=== PATIENT | female | born 1990 | race American Indian/Alaskan Native ===

== ENCOUNTER 2018-09-11 15:21 | Emergency (ER) | payer BC ==
[2018-09-11 17:36] LABS: SQUAMOUS EPITHIAL 34 /hpf (0-5); URINE BACTERIA OCC (<OCC); URINE BILIRUBIN NEGATIVE (NEGATIVE); URINE BLOOD 2+ (NEGATIVE); URINE CLARITY Hazy (Clear); URINE GLUCOSE (UA) NORMAL (Normal); URINE LEUKOCYTE ESTERASE 3+ Leu/uL (Negative); URINE PROTEIN 2+ mg/dL (NEGATIVE); URINE UROBILINOGEN NORMAL mg/dL (0.2-1.0)
[2018-09-11 17:37] LABS: URINE COLOR YELLOW (YELLOW)
--- NOTE | 2018-09-12 18:17 | US ---
Date of service: 09/11/2018 PROCEDURE: OB Pelvic Ultrasound HISTORY: 34 wks, GDM , abdominal pain Left central appears reported 01/26/2018 suggesting 32 week 4 day gestation. COMPARISON: None available. FINDINGS: UTERUS: Gestational sac: Single intrauterine gestation. Heart rate: 136 bpm. age (Ultrasound estimated): 32 weeks 4 days Sasha-gestational hemorrhage: None. Date of delivery (Ultrasound estimated) : 11/29/2018 The following mean biometry was obtained: Biparietal diameter 8.3 cm corresponds to 33 weeks 4 days. Head circumference 29.7 cm corresponds to 32 weeks 6 days. Abdominal circumference 30.0 cm correspond 32 weeks 0 days. Femur length 6.2 cm corresponds to 32 weeks 0 days. Estimated weight 1928 g +/-289.14 g/4 lb 4 oz. HC/AC ratio 1.06 falls within the normal range. [place] measuring 12.91 cm. anatomical survey compromised by late stage of gestation. Placenta is anterior with lie cephalic. No placental abruption or previa appreciated. Biophysical profile scoring: breathing 2/2. body movement 2/2. tone 2/2. Amniotic fluid 2/2. Total score: 8/8. CERVIX: Measures 3.9 cm. Long and closed. No cervical abnormality seen. RIGHT OVARY: Not identified. LEFT OVARY: Not identified. FREE FLUID: None. OTHER FINDINGS: None. IMPRESSION: Biophysical profile score 8/8. Single viable intrauterine gestation in cephalic lie with an anterior fundal placenta and average ultrasonic age 32 weeks 4 days as discussed above. No placental abruption or previa. cardiac activity 136 beats per minute. Additional details as listed above. Concordant preliminary report from Jeannette, 09/11/2018, 9:15 p.m..
[2018-09-13 16:38] VITALS: BP 122/61; PULSE 103; RESP 18; TEMP 98; O2SAT 100
--- NOTE | 2018-09-14 10:45 | OBHP ---
Datetime: 09/11/2018 16:18 IP Adm Impression: , intrauterine ; No Active Labor IP Admit Plan: Observation/Evaluation; Discharge home Admit Comment, IP Provider: 28yo with IUP at 32 weeks presents to the LND c/o lower abdominal d iscomfort since [employer]. She denies any vaginal bleeding or lrakage of fluid. She denies urinar y frequency, dysuria or burning. She had intercourse about 4 days ago and had some vaginal spotting b ut not now. Patient reports that she has GDM diet controlled and the last finger stick less than 1 hour ago is 160. PMHx: Nil of Note. SocialHx; None O: Afebrile Heart: RRR Chest: CTA B/L Abd: Soft, NT, BS- present Uterus soft, NT FHR - 140s, moderate variability TOCO: None SVE;0/0/-3 Assessment: IUP at 32 weeks Reaasuring Maternal status Plan: Discharge Home Follow up with Dr Lynch on Thursday. Pelvic rest Continue to Monitor glucose levels as per Dr Delong. Pelvic Type - PN: Adequate Extremities - PN: Normal Abdomen - PN: Normal Back - PN: Normal Breast - PN: Normal Lungs - PN: Normal Heart - PN: Normal Thyroid - PN: Normal Neurologic - PN: Normal HEENT - PN: Normal General - PN: Normal Presentation-Admit: Vertex FHR - Baseline A Provider: 140 Membranes, Provider: Intact Contraction Comments Provider: None Gestation - Est Wks by US: 32.4 EGA AdmitDate IP: 32.4 Vital Signs Provider: Reviewed IP Chief Complaint: Maternal discomfort NICHD Variability Prov Fetus A: Moderate 6-25bpm NICHD Accel Fetus A IP Provider: 15X15 FHR Category Provider Fetus A: Category I NICHD Decel Fetus A IP Provider: None Dilatation, Provider: 0 Effacement, Provider: 0 Station, Provider: -3 Genitourinary Exam: Normal DTRs - PN: Normal
== END 2018-09-11 20:02 | disposition home or self-care (01) ==
LOC: C.EROB 15:21
DX: O26.893 Other specified pregnancy related conditions, third trimester (principal); R10.30 Lower abdominal pain, unspecified; Z3A.32 32 weeks gestation of pregnancy

== ENCOUNTER 2018-10-26 20:02 | Inpatient (IN) | payer BC ==
[2018-10-26 20:43] VITALS: BMI 29.3
--- NOTE | 2018-10-26 21:08 | OBHP ---
Datetime: 10/26/2018 20:48 IP Adm Impression: Term, intrauterine ; No Active Labor; Intact Membranes IP Admit Plan: Admit to unit; Initiate labor induction protocol Admit Comment, IP Provider: 28 yo female with an IUP at 39 weeks and admitted for IOL, as p er Dr. Delong and secondary to GDM, Diet controlled. Pt denies any LOF, VB or VD and admits to adequa te FM. PSHx: Denies PMHx: Denies Meds, PNV NKDA Social Hx: Denies x 3 PE as noted above A/P Term GDM /Diet controlled per patient Unfavorable cervix, per Dr. Delong who requested Cervidil tonite and Pitocin in AM NST reactive Admit labs ordered IV fluids started Hope for vaginal delivery Pelvic Type - PN: Adequate Extremities - PN: Normal Abdomen - PN: Normal Back - PN: Normal Breast - PN: Not Done Lungs - PN: Normal Heart - PN: Normal Thyroid - PN: Normal Neurologic - PN: Normal HEENT - PN: Normal General - PN: Normal Presentation-Admit: Vertex FHR - Baseline A Provider: 140 Membranes, Provider: Intact Gestation - Est Wks by US: 39.0 IP Hx Assessment: The History has been Reviewed and is Current EGA AdmitDate IP: 39.0 Vital Signs Provider: Reviewed IP Chief Complaint: Scheduled induction of labor NICHD Variability Prov Fetus A: Moderate 6-25bpm NICHD Accel Fetus A IP Provider: 10X10 FHR Category Provider Fetus A: Category I NICHD Decel Fetus A IP Provider: None Dilatation, Provider: FTP Effacement, Provider: 30 Station, Provider: -3 Genitourinary Exam: Normal DTRs - PN: Normal
[2018-10-26] MEDS ORDERED: Lactated Ringer's 1,000 ML IV ONE (21:12)
[2018-10-26] MEDS ORDERED: Lactated Ringer's 1,000 ML IV SCH (21:15)
--- NOTE | 2018-10-26 21:26 | OBADHP ---
Datetime: 10/26/2018 20:48 Admit Comment, IP Provider: 28 yo female with an IUP at 39 weeks and admitted for IOL, as p er Dr. Delong and secondary to GDM, Diet controlled. Pt denies any LOF, VB or VD and admits to adequa te FM. PSHx: Denies PMHx: Denies Meds, PNV NKDA Social Hx: Denies x 3 PE as noted above A/P Term GDM /Diet controlled per patient Unfavorable cervix, per Dr. Delong who requested Cervidil tonite and Pitocin in AM NST reactive Admit labs ordered with IV fluids Cervidil placed with ease IV fluids started Hope for vaginal delivery Pelvic Type - PN: Adequate Extremities - PN: Normal Abdomen - PN: Normal Back - PN: Normal Breast - PN: Not Done Lungs - PN: Normal Heart - PN: Normal Thyroid - PN: Normal Neurologic - PN: Normal HEENT - PN: Normal General - PN: Normal Presentation-Admit: Vertex FHR - Baseline A Provider: 140 Membranes, Provider: Intact Contraction Comments Provider: 0 Gestation - Est Wks by US: 39.0 IP Hx Assessment: The History has been Reviewed and is Current Vital Signs Provider: Reviewed IP Chief Complaint: Scheduled induction of labor NICHD Variability Prov Fetus A: Moderate 6-25bpm NICHD Accel Fetus A IP Provider: 10X10 FHR Category Provider Fetus A: Category I NICHD Decel Fetus A IP Provider: None Dilatation, Provider: FTP Effacement, Provider: 30 Station, Provider: -3 Genitourinary Exam: Normal DTRs - PN: Normal EGA AdmitDate IP: 39.0 IP Adm Impression: Term, intrauterine ; No Active Labor; Intact Membranes IP Admit Plan: Admit to unit; Initiate labor induction protocol
[2018-10-26 21:51] LABS: BASO % 0.2 % (0.0-2.0); EOS # 0.2 K/uL (0.0-0.7); LYMPH # 1.8 K/uL (1.0-4.3); LYMPH % 23.3 % (20.0-40.0); MEAN CORPUSCULAR HEMOGLOBIN 31.7 pg (27.0-31.0); MEAN CORPUSCULAR HGB CONC 33.7 g/dL (33.0-37.0); MEAN PLATELET VOLUME 6.5 fL (7.2-11.7); MONO # 0.7 K/uL (0.0-0.8); MONO % 9.7 % (0.0-10.0); NEUT # 4.9 K/uL (1.8-7.0); NEUT % 64.8 % (50.0-75.0); RBC 4.11 Mil/uL (3.80-5.20); RED CELL DISTRIBUTION WIDTH 13.6 % (11.5-14.5); WHITE BLOOD COUNT 7.6 K/uL (4.8-10.8)
[2018-10-26 23:00] LABS: SQUAMOUS EPITHIAL 4 /hpf (0-5); URINE BACTERIA RARE (<OCC); URINE BILIRUBIN NEGATIVE (NEGATIVE); URINE BLOOD NEGATIVE (NEGATIVE); URINE CLARITY Clear (Clear); URINE COLOR Amber (YELLOW); URINE GLUCOSE (UA) NORMAL (Normal); URINE LEUKOCYTE ESTERASE NEG Leu/uL (Negative); URINE PROTEIN NEGATIVE (NEGATIVE)
[2018-10-27] MEDS ORDERED: Oxytocin 30 UNIT in NS 500 ml 30 UNITS/500 ML BAG IV SCH (07:45)
[2018-10-27] MEDS ORDERED: Oxytocin 30 UNIT in NS 500 ml 30 UNITS/500 ML BAG IV ONE (08:02)
[2018-10-27 09:16] LABS: ALB/GLOB RATIO 1.4 (1.0-2.1); ALBUMIN 3.9 g/dL (3.5-5.0); ALT/SGPT 14 U/L (9-52); AST/SGOT 17 U/L (14-36); BLOOD UREA NITROGEN 9 mg/dL (7-17); CALCIUM 9.8 mg/dl (8.6-10.4); GFR NON-AFRICAN AMERICAN > 60
--- NOTE | 2018-10-27 11:04 | OBPN ---
Datetime: 10/27/2018 06:50 IP Procedures: Sterile Vag Exam FHR - Baseline A Provider: 130 IP Progress Note Comment: pt was examined at bed side_ ve 2/70/-2 cervidil removed start ptocin NICHD Accel Fetus A IP Provider: 15X15 FHR Category Provider Fetus A: Category I NICHD Variability Prov Fetus A: Moderate 6-25bpm Dilatation, Provider: 2 Effacement, Provider: 70 Station, Provider: -2 Dr Signature: jayro Datetime: 10/26/2018 20:48 Membranes, Provider: Intact Contraction Comments Provider: 0 Gestation - Est Wks by US: 39.0 Presentation-Admit: Vertex Vital Signs Provider: Reviewed NICHD Decel Fetus A IP Provider: None
--- NOTE | 2018-10-27 13:06 | OBPN ---
Datetime: 10/27/2018 13:03 IP Progress Impression: Normal progression of labor IP Procedures: Artificial ROM; Sterile Vag Exam Contraction Comments Provider: q1-4 FHR - Baseline A Provider: 130 IP Progress Note Comment: pt was examined at bed side ve /-2 arom clear cont ptocin anticipoate nsbvd NICHD Accel Fetus A IP Provider: 15X15 NICHD Variability Prov Fetus A: Moderate 6-25bpm Dilatation, Provider: 4 Effacement, Provider: 70 Station, Provider: -2
[2018-10-27] MEDS ORDERED: Fentanyl/Bupivacaine HCl 250 ML EPI ONE (13:28)
--- NOTE | 2018-10-27 16:16 | OBPN ---
Datetime: 10/27/2018 15:51 IP Progress Impression: Normal progression of labor IP Informed Consent Obtain: Vaginal Delivery IP Procedures: Sterile Vag Exam IP Progress Plan: Continue present management; Anticipate Vaginal Delivery FHR - Baseline A Provider: 130 Gestation - Est Wks by US: 39.1 IP Progress Note Comment: Patient was seen and examined at bedside SVE: 10cm/100/+1 Intermittent bradycardia that was responsive to scalp stimulation with patient sitting upright Plans: Patient is to labor down Anticipate vaginal delivery NICHD Accel Fetus A IP Provider: 10X10 NICHD Variability Prov Fetus A: Moderate 6-25bpm NICHD Decel Fetus A IP Provider: Early
[2018-10-27] MEDS ORDERED: Dextrose 5%/Lactated Ringer's 1,000 ML IV SCH (16:30)
[2018-10-27] MEDS ORDERED: Oxytocin 10 Units/ml Inj ONE (17:07)
[2018-10-27] MEDS ORDERED: Benzocaine/Menthol 20%-0.5% Topical Spray (60 ml) TOP PRN (17:17)
[2018-10-27] MEDS ORDERED: Oxycodone/Acetaminophen 5/325 mg Tab PO PRN ×2 (17:17)
--- NOTE | 2018-10-27 17:17 | OBDS ---
MATERNAL INFORMATION Provider Comments: dr dial baby deliverd in balbir end clear cord reduced mno com LABOR SUMMARY EDC: 11/02/2018 00:00 No. Babies in Womb: 1 Labor Anesthesia: Epidural LABOR INFORMATION Onset of Labor: 10/27/2018 15:11 Complete Dilatation: 10/27/2018 15:51 Cervical Ripening Agents: Cervidil Oxytocin: Augmentation Group B Beta Strep: Negative (Annotations: 09/27/2018) Steroids Given: None Reason Steroids Not Administered: Not Applicable MEMBRANES Membranes Rupture Method: Artificial Rupture of Membranes: 10/27/2018 11:54 Length of Rupture (hrs): 5.08 Amniotic Fluid Color: Clear Amniotic Fluid Amount: Small Amniotic Fluid Odor: None STAGES OF LABOR Stage 1 hrs: 0 Stage 1 min: 40 Stage 2 hrs: 1 Stage 2 min: 8 BABY A INFORMATION Infant Delivery Date/Time: 10/27/2018 16:59 Method of Delivery: Vaginal Born in Route : No : N/A Forceps: N/A Vacuum Extraction: N/A Shoulder Dystocia : No SHOULDER DYSTOCIA BABY A Infant Delivery Date/Time: 10/27/2018 16:59 PRESENTATION/POSITION BABY A Presentation: Cephalic Cephalic Presentation: Vertex Vertex Position: Left Occipital Anterior Breech Presentation: N/A PLACENTA INFORMATION BABY A Placenta Method of Delivery: Spontaneous Placenta Status: Delivered IDENTIFICATION/MEDS BABY A ID Band Number: [id number] Sensor Number: [id number]
--- NOTE | 2018-10-28 07:10 | OBPPN ---
Datetime: 10/28/2018 07:06 PP Pain Prov: Within normal limits PP Nausea Prov: Denies PP Flatus Prov: Yes PP Abdomen/Uterus Prov: Normal PP Lochia Prov: Normal PP Extremities Prov: Normal PP Impression Prov: Normal progression PP Plan Prov: Continue present management PP Progress Note Prov: pt was seen atbed siode, pain under control,no n/v, tolerating deit, voidimng , flatus + ppd#1 cont pp care cnt pn wncourage ambu Vital Signs Provider PP: Reviewed; Within Normal Limits
[2018-10-28 09:11] LABS: BASO % 0.4 % (0.0-2.0); EOS # 0.2 K/uL (0.0-0.7); EOS % 1.6 % (0.0-4.0); HEMOGLOBIN 11.1 g/dL (11.0-16.0); LYMPH # 1.8 K/uL (1.0-4.3); LYMPH % 16.3 % (20.0-40.0); MEAN CELL VOLUME 94.2 fL (81.0-99.0); MEAN CORPUSCULAR HEMOGLOBIN 32.3 pg (27.0-31.0); MEAN CORPUSCULAR HGB CONC 34.2 g/dL (33.0-37.0); MEAN PLATELET VOLUME 6.6 fL (7.2-11.7); MONO # 0.7 K/uL (0.0-0.8); MONO % 6.7 % (0.0-10.0); NEUT # 8.4 K/uL (1.8-7.0); RBC 3.45 Mil/uL (3.80-5.20); RED CELL DISTRIBUTION WIDTH 13.5 % (11.5-14.5); WHITE BLOOD COUNT 11.2 K/uL (4.8-10.8)
[2018-10-29 00:40] VITALS: PULSE 104; O2SAT 99
[2018-10-29] MEDS ORDERED: Measles, Mumps, and Rubella 0.5 ML VIAL SC ONE (09:00)
[2018-10-29] MEDS ORDERED: Tdap Vaccine 0.5 ml Vial (10-64 yrs) IM ONE (10:17)
[2018-10-29 12:09] VITALS: BP 124/65; TEMP 97.9
--- NOTE | 2018-10-29 12:43 | OBDCSUM ---
Datetime: 10/29/2018 09:33 Discharged to, Provider: Home Follow up at, Provider: Dr. Delong Disch Instr Activity: Normal activity; May be up to bathroom; May be up for meals; May Shower Disch Instr Diet: Regular Discharge Instructions, Provider: Routine instructions given Discharge Diagnosis, Provider: Term Delivered Discharge Time: 10/29/2018 11:00 Follow up in weeks, Provider: 6 weeks, December 01, 2018 Disch Referrals: None Contraception discussed, Prov: Yes Disch Activity Restrictions: No sexual activity; Nothing in vagina - [place], tampons, douche Discharge Comment, Provider: Discharge home today: F/u with Dr. Delong in 6 weeks, nothing per vagin a or sexual intercourse in 6 weeks, you may resume to regular activities as tolerated, Motrin 600mg P O Q6H prn for pain control. Continue with hydration, ambulation and breast feeding Please return to the hospital if symptoms of fever, chills, abdominal pain, abnormal vaginal bleed ing and excessive vaginal bleeding Contraception after Delivery: Undecided
--- NOTE | 2018-10-29 12:43 | OBPPN ---
Datetime: 10/29/2018 09:03 PP Pain Prov: Within normal limits PP Nausea Prov: Denies PP Flatus Prov: No PP BM Prov: Yes PP Breasts Prov: Normal PP Heart Prov: Normal PP Lungs Prov: Normal PP Abdomen/Uterus Prov: Normal PP Lochia Prov: Normal PP Extremities Prov: Normal PP Comments Phys Exam Prov: Abdomen: Soft, Non-tender, fundus is slightly below the umbilicus PP Impression Prov: Normal progression PP Plan Prov: Discharge PP Progress Note Prov: Patient was seen and examined at bedside. Patient reports that she is doing w ell and has no acute issues. Patient admits to mild lochia, urinating without difficulties and had a bowel movement. Patient denies any symptoms of fever, chills, nausea, vomiting, abdominal pain, abnor mal vaginal discharge, calf tenderness or claudication. Vital Signs: Within normal limits. Refer to chart above Physical Examination: Within normal limits. Refer to above stated exam Labs: 7.6>13.0/38.6<380, 11.2>11.1/32.5<342 B+, Rubella non-immune A/P: Patient is a 28 year old at 39.1 weeks, who is now via without any complications, P PD #2 1. Afebrile, Stable, H/H stable 2. Rubella non-immune: will give MMR vaccine before discharge 3. Continue with ambulaiton, hydration and breasfeeding 4. Discharge home today: F/u with Dr. Delong in 6 weeks, nothing per vagina or sexual intercourse in 6 weeks, you may resume to regular activities as tolerated, Motrin 600mg PO Q6H prn for pain contr ol. 5. Male infant: Does not desire circumcision Abisoleland Stubbs, DO, PGY-2 All plans and managment discussed with Dr. Delong IP PP Procedures: Rubella Vital Signs Provider PP: Within Normal Limits
[2018-10-29 16:17] VITALS: RESP 20
== END 2018-10-29 12:14 | disposition home or self-care (01) | DRG 807 ==
LOC: C.EROB 20:02 → C.4D 21:00 → C.4M 10-27 20:10
PROVIDERS: ADMIT Obstetrics & Gynecology; ATTEND Obstetrics & Gynecology
PROC: 10E0XZZ Delivery of Products of Conception, External Approach (ICD-10-PCS; principal; 2018-10-26)
DX: O24.429 Gestational diabetes mellitus in childbirth, unspecified control (principal); Z3A.39 39 weeks gestation of pregnancy; O76 Abnormality in fetal heart rate and rhythm complicating labor and delivery; Z37.0 Single live birth